=== PATIENT | female | born 1965 | race Caucasian/White ===

== ENCOUNTER 2017-02-27 05:49 | Day surgery (SDC) | payer OTHER ==
[2017-02-27] MEDS ORDERED: VERSED 5 MG/5 ML IV ONE (05:50)
[2017-02-27] MEDS ORDERED: SUBLIMAZE 100 MCG/2 ML IV ONE (05:50)
[2017-02-27] MEDS ORDERED: Sodium Chloride 0.9% 1000 ML 1,000 ML ONE (05:58)
[2017-02-27] MEDS ORDERED: Sodium Chloride 0.9% 1000 ML 1,000 ML IV SCH (06:00)
[2017-02-27 07:57] VITALS: O2SAT 95
[2017-02-27 08:36] VITALS: BP 121/68; PULSE 78
--- NOTE | 2017-02-27 09:14 | OP ---
SURGERY DATE/TIME: 02/27/2017 0701 PREOPERATIVE DIAGNOSES: 1) Screening colonoscopy. 2) Family history of colon cancer. POSTOPERATIVE DIAGNOSIS: Cecal polyps x2. PROCEDURE: Colonoscopy. SURGEON: Lorenzo Strickland M.D. ANESTHESIA: IV sedation. ESTIMATED BLOOD LOSS: Minimal. SPECIMENS: Two hot forceps polypectomies from the cecal area. DESCRIPTION OF PROCEDURE: After informed written consent was obtained, the patient was taken to the endoscopy suite. She underwent continuous pulse oximetry and intermittent blood pressure monitoring used throughout the entirety of the procedure. After adequate level of anesthesia was assessed, a digital rectal exam was performed and showed normal sphincter tone and no internal lesions. The scope was inserted into the rectum and sequentially the entire colonic mucosa was traversed. The level of cecum was reached and verified with direct visualization of ileocecal valve. There were two pericecal sessile polyps removed with hot forceps in their entirety with good hemostasis and complete removal of the lesion in both areas. Those were both collected and sent for pathology testing. Upon withdrawal no other lesions were encountered. Prior to withdrawal retroflexion was performed and this was within normal limits. Prep was noted to be good. The scope was removed and the patient was transferred to the recovery room in excellent condition.
== END 2017-02-27 08:51 | disposition home or self-care (01) ==
LOC: SDC 05:49
PROVIDERS: ATTEND Family Medicine
PROC: 0DBH8ZX Excision of Cecum, Via Natural or Artificial Opening Endoscopic, Diagnostic (ICD-10-PCS; principal; 2017-02-27)
DX: K63.5 Polyp of colon (principal); Z12.11 Encounter for screening for malignant neoplasm of colon; Z80.0 Family history of malignant neoplasm of digestive organs
CPT/HCPCS: 88305; J2250; J3010

== ENCOUNTER 2017-09-16 07:26 | Observation (INO) | payer OTHER ==
[2017-09-16] MEDS ORDERED: Adacel Vial IM ONE ×2 (07:47→07:50)
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
[2017-09-16 08:12] LABS: Granulocyte Absolute (ANC) 7.42 (1.4-6.9); Hemoglobin 12.7 gm/dl (12.0-16.0); Mean Cell Volume 85.7 fl (78-100); Mean Corpuscular Hemoglobin 27.2 pg (26-32); Mean Corpuscular Hgb Concent. 31.8 g/dl (32-36); Mean Platelet Volume 9.9 fl (6-9.5); Platelet Count 305 K/mm3 (150-450); Red Blood Count 4.67 M/mm3 (4.1-5.4); Red Cell Distribution Width 15.7 % (11.5-14.0); White Blood Count 9.6 K/mm3 (4.0-10.5)
[2017-09-16 08:28] LABS: ALKALINE PHOSPHATASE 120 U/L (38-126); AMYLASE 55 U/L (30-110); ANION GAP 14.1 MEQ/L (5-15); BLOOD UREA NITROGEN 16 mg/dL (7-17); CHLORIDE 102 mmol/L (98-107); Calcium 9.3 mg/dL (8.4-10.2); Carbon Dioxide 27 mmol/L (22-30); Creatinine 1 0.56 mg/dL (0.52-1.04); Glucose 183 mg/dL (74-106); LIPASE 118 U/L (23-300); SGOT/AST 224 U/L (14-36); SGPT/ALT 139 U/L (0-35); SODIUM 139 mmol/L (137-145); Total Protein 7.2 g/dL (6.3-8.2)
--- NOTE | 2017-09-16 09:02 | XRAY ---
Indication: Pain following injury. Comparison: None 3 views of the left elbow demonstrates normal bones, articulation, and soft tissues.
[2017-09-16 09:11] LABS: Appearance CLEAR (CLEAR); Bacteria MANY /HPF (NEGATIVE); Bilirubin NEGATIVE (NEGATIVE); Epithelial Cells FEW /HPF (FEW); Glucose NEGATIVE (NEGATIVE); Ketones NEGATIVE (NEGATIVE); Leukocyte Esterase 1+ (NEGATIVE); Nitrite NEGATIVE (NEGATIVE); Protein,Urine Dip TRACE (Negative); RBC 0-2 /HPF (0-2); Urobilinogen NORMAL mg/dL (0-1); WBC 15-25 /HPF (0-5)
[2017-09-16 09:38] LABS: Eosinophil 1 % (0.00-3.0); Lymphocytes 23 % (24-44); Monocyte 1 % (0.0-12.0); Neutrophils 75 % (36.0-66.0); Platelet Estimate NORMAL (NORMAL); Total Cells Counted 100
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
[2017-09-16] MEDS ORDERED: Sodium Chloride 0.9% 1000 ML 1,000 ML IV STA ×2 (11:07→12:41)
[2017-09-16] MEDS ORDERED: Sodium Chloride 0.9% 1000 ML 1,000 ML ONE ×3 (11:17→12:56)
[2017-09-16] MEDS ORDERED: Sodium Chloride 0.9% 1000 ML 1,000 ML IV SCH (15:20)
[2017-09-16] MEDS ORDERED: NovoLOG Insulin SQ PRN (15:20)
[2017-09-16] MEDS ORDERED: Zofran 4 MG/2 ML VIAL IV PRN (15:20)
[2017-09-16] MEDS ORDERED: NON-FORMULARY ITEM (Insulin Lispro 100 UNIT) SQ SCH (17:30)
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
[2017-09-16] MEDS: Glucophage 500 MG PO SCH (17:49)
[2017-09-16] MEDS ORDERED: NovoLOG Insulin SQ ONE (20:11)
[2017-09-16] MEDS: TYLENOL 325 MG PO PRN (21:00)
[2017-09-16] MEDS ORDERED: NON-FORMULARY ITEM (Metformin Hcl [Metformin Hcl] 1,000 MG) PO SCH (22:00)
[2017-09-16] MEDS ORDERED: Cymbalta 30 MG Capsule PO SCH (22:00)
[2017-09-16] MEDS ORDERED: NON-FORMULARY ITEM (Duloxetine Hcl [Cymbalta] 60 MG) PO SCH (22:00)
[2017-09-17] MEDS: TYLENOL 325 MG PO PRN ×2 (04:29→10:11)
[2017-09-17 05:41] LABS: BASOPHIL % 0.5 % (0.0-0.4); Basophil (Absolute #) 0.04 (0-0.4); Eosinophil % 3.2 % (0.00-5.0); Eosinophil (Absolute #) 0.25 (0-0.5); Granulocyte Absolute (ANC) 4.49 (1.4-6.9); Granulocytes % 57.8 % (36.0-66.0); Hematocrit 32.7 % (35-47); Hemoglobin 10.3 gm/dl (12.0-16.0); Lymphocytes % 32.2 % (24.0-44.0); Mean Cell Volume 86.7 fl (78-100); Mean Corpuscular Hemoglobin 27.3 pg (26-32); Mean Corpuscular Hgb Concent. 31.5 g/dl (32-36); Mean Platelet Volume 10.1 fl (6-9.5); Monocyte (Absolute #) 0.49 (0.0-1.3); Monocytes % 6.3 % (0.0-12.0); Platelet Count 286 K/mm3 (150-450); Red Blood Count 3.77 M/mm3 (4.1-5.4); Red Cell Distribution Width 15.7 % (11.5-14.0); White Blood Count 7.8 K/mm3 (4.0-10.5)
[2017-09-17 05:52] LABS: ALBUMIN 3.4 g/dL (3.5-5.0); ALKALINE PHOSPHATASE 88 U/L (38-126); ANION GAP 11.4 MEQ/L (5-15); BLOOD UREA NITROGEN 17 mg/dL (7-17); CHLORIDE 101 mmol/L (98-107); Calcium 8.9 mg/dL (8.4-10.2); Carbon Dioxide 28 mmol/L (22-30); Creatinine 1 0.64 mg/dL (0.52-1.04); Glucose 157 mg/dL (74-106); Potassium 3.7 mmol/L (3.5-5.1); SGOT/AST 69 U/L (14-36); SGPT/ALT 89 U/L (0-35); SODIUM 136 mmol/L (137-145); Total Protein 6.2 g/dL (6.3-8.2)
[2017-09-17 07:05] VITALS: PULSE 82
[2017-09-17] MEDS: NovoLOG Insulin SQ SCH ×2 (07:51→11:58)
[2017-09-17] MEDS: Glucophage 500 MG PO SCH (08:38)
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
[2017-09-17 11:37] VITALS: BP 132/66; O2SAT 96
== END 2017-09-17 12:30 | disposition home or self-care (01) ==
LOC: ED 07:26 → MED SURG 15:11
PROVIDERS: ADMIT Family Medicine; ATTEND Family Medicine
DX: R79.89 Other specified abnormal findings of blood chemistry (principal); R10.11 Right upper quadrant pain; R10.30 Lower abdominal pain, unspecified; S32.009A Unspecified fracture of unspecified lumbar vertebra, initial encounter for closed fracture; R42 Dizziness and giddiness; I10 Essential (primary) hypertension; E11.9 Type 2 diabetes mellitus without complications; Z79.4 Long term (current) use of insulin; E03.9 Hypothyroidism, unspecified; Z79.899 Other long term (current) drug therapy; V59.88XA Occupant (driver) (passenger) of pick-up truck or van injured in other specified transport accidents, initial encounter; Y92.488 Other paved roadways as the place of occurrence of the external cause
CPT/HCPCS: 36000; 36415; 73080; 74177; 80053; 81000; 82150; 82962; 83690; 84484; 85025; 87077; 87086; 87186; 93005; 96360; 96361; 99285; G0378; 90471; 90715; L0625; A9270-GY

== ENCOUNTER 2019-06-18 21:58 | Emergency (ER) | payer OTHER ==
[2019-06-18] MEDS ORDERED: BACIGUENT PACKET ONE (22:40)
--- NOTE | 2019-06-18 22:44 | ERPHSYRPT ---
- History of Present Illness Time Seen by Provider: 06/18/19 22:15 Patient Subjective Stated Complaint: Patient was practicing a line dance and was practicing with white quarter inch PVC pipe and she didnt catch it when she through it in the air in which when it came down hit her above left eye Triage Nursing Assessment: Patient arrived to ER with . Patient A/O times 4. Patient answers questions appropriatley. Patient ambulated back to room with steady gait. Patient with about 2.5CM laceration above left eye. Wound with small amounts of active bleeding. No S/S of infection noted. Patient denies any visual disturbance in left eye. Patient denies dizziness and ELLIOTT. Left and right pupil reactive to light. No abnormalities noted upon assessment. Physician History: Patient was participating in a practice for a light show with PVC pipe with attached lights in 1 fell and hit her in the left eyebrow causing a semicircular laceration approximately 1-1/2 cm in length somewhat stellate no other injury no change in her vision. Timing/Duration: today Quality: painful Severity: mild Location: face (Left eyebrow superficial stellate laceration 1.5 cm in length) Allergies/Adverse Reactions: enalaprilat [From Vasotec] Adverse Reaction (Verified 06/18/19 22:11) Cough Sulfa (Sulfonamide Antibiotics) Adverse Reaction (Verified 06/18/19 22:11) Rash sulfamethoxazole [From Bactrim] Adverse Reaction (Verified 06/18/19 22:11) Rash trimethoprim [From Bactrim] Adverse Reaction (Verified 06/18/19 22:11) Rash Home Medications: Amlodipine Besylate 5 mg [Norvasc 5 mg] 5 mg PO DAILY 02/25/17 [History] Ascorbic Acid [Vitamin C] 500 mg PO DAILY 02/25/17 [History] Duloxetine HCl [Cymbalta] 60 mg PO HS 02/25/17 [History] Furosemide 20 mg [Lasix 20 mg] 20 mg PO DAILY 02/25/17 [History] Gabapentin 100 mg PO TID 02/25/17 [History] Hydrochlorothiazide 12.5 mg PO DAILY 02/25/17 [History] Insulin Lispro [Humalog] 100 unit SQ UD 02/25/17 [History] Losartan Potassium 100 mg PO DAILY 02/25/17 [History] Metformin HCl 1,000 mg PO BID 02/25/17 [History] Aspirin 81 gm Chew [Baby Aspirin 81 mg Chew] 81 mg PO DAILY 06/18/19 [ History] Ferrous Sulfate 325 mg [Feosol 325 mg] 325 mg PO DAILY 06/18/19 [History] Insulin Glargine,Hum.rec.anlog [Lantus] 100 unit SQ HS 06/18/19 [History] Hx Tetanus, Diphtheria Vaccination/Date Given: No Hx Influenza Vaccination/Date Given: Yes Hx Pneumococcal Vaccination/Date Given: No Immunizations Up to Date: Yes - Review of Systems Constitutional: No Fever, No Chills Eyes: No Symptoms Ears, Nose, & Throat: No Symptoms Respiratory: No Cough, No Dyspnea Cardiac: No Chest Pain, No Edema, No Syncope Abdominal/Gastrointestinal: No Abdominal Pain, No Nausea, No Vomiting, No Diarrhea Genitourinary Symptoms: No Dysuria Musculoskeletal: No Back Pain, No Neck Pain Skin: Other (Coleman left eyebrow 1.5 cm in length stellate and superficial), No Rash Neurological: No Dizziness, No Focal Weakness, No Sensory Changes Psychological: No Symptoms Endocrine: No Symptoms All Other Systems: Reviewed and Negative - Past Medical History Pertinent Past Medical History: Yes Neurological History: No Pertinent History, Peripheral Neuropathy ENT History: No Pertinent History Cardiac History: No Pertinent History Respiratory History: No Pertinent History Endocrine Medical History: Diabetes Type II, Hypothyroidism Musculoskeletal History: No Pertinent History GI Medical History: No Pertinent History History: No Pertinent History Psycho-Social History: No Pertinent History Female Reproductive Disorders: No Pertinent History - Past Surgical History Past Surgical History: Yes Neuro Surgical History: No Pertinent History Cardiac: No Pertinent History Respiratory: No Pertinent History Gastrointestinal: No Pertinent History Genitourinary: No Pertinent History Musculoskeletal: No Pertinent History Female Surgical History: Section, Tubal Ligation Other Surgical History: x two - Social History Smoking Status: Former smoker Exposure to second hand smoke: No Drug Use: none Patient Lives Alone: No - Female History Hx Last Menstrual Period: POST Hx Now: No - Nursing Vital Signs Nursing Vital Signs: Initial Vital Signs Temperature 98.4 F 06/18/19 22:03 Pulse Rate 89 06/18/19 22:03 Respiratory Rate 18 06/18/19 22:03 Blood Pressure 148/94 06/18/19 22:03 O2 Sat by Pulse Oximetry 99 06/18/19 22:03 Pain Scale Pain Intensity 5 - Physical Exam General Appearance: no apparent distress, alert Eye Exam: PERRL/EOMI, eyes nml inspection, other (Per official stellate laceration 1.5 cm in length left eyebrow) Ears, Nose, Throat Exam: normal ENT inspection, pharynx normal, moist mucous membranes Neck Exam: normal inspection, non-tender, supple, full range of motion Respiratory Exam: normal breath sounds, lungs clear, No respiratory distress Cardiovascular Exam: regular rate/rhythm, normal heart sounds Gastrointestinal/Abdomen Exam: soft, mass, No tenderness Back Exam: normal inspection, normal range of motion, No CVA tenderness, No vertebral tenderness Extremity Exam: normal inspection, normal range of motion Neurologic Exam: alert, oriented x 3, cooperative, normal mood/affect, sensation nml, No motor deficits Skin Exam: normal color, warm, dry SpO2: 99 Procedures - Laceration/Wound Repair Left Other Wound Location: Left, forehead (Eyebrow) Wound Length (cm): 1.5 Wound's Depth, Shape: superficial, stellate Wound Explored: no foreign body noted Irrigated: Yes Hibiclens Prep: Yes Anesthesia: 1% Lidocaine Volume Anesthetic (ccs): 2 Wound Debrided: minimal Wound Repaired With: sutures Suture Size/Type: 6-0, ethilon Number of Sutures: 6 Layer Closure?: No Sterile Dressing Applied?: No Splint Applied?: No Sling Applied?: No - Course Nursing assessment & vital signs reviewed: Yes - Progress Progress: improved - Departure Departure Disposition: Home Clinical Impression: Laceration of eyebrow, left Condition: Stable Critical Care Time: No Instructions: Wound Care (DC), Laceration Repair With Stitches (DC)
[2019-06-18 23:00] VITALS: BP 133/73; PULSE 84; O2SAT 96
[2019-06-18] MEDS: BACIGUENT PACKET TP ONE (23:00)
[2019-06-18] MEDS: XYLOCAINE 1% HCL 20 ML MDV IJ ONE (23:01)
== END 2019-06-18 23:05 | disposition home or self-care (01) ==
LOC: ED 21:58
DX: S01.112A Laceration without foreign body of left eyelid and periocular area, initial encounter (principal); W22.8XXA Striking against or struck by other objects, initial encounter
CPT/HCPCS: 12011; 96372; 99284; A9270-GY

== ENCOUNTER 2020-09-22 07:30 | Day surgery (SDC) | payer OTHER ==
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
[~2020-09-22 07:30] MED LIST: Lactated Ringers 1,000 ML IV ONE; Sensorcaine 0.25% 10 ML ONE
[2020-09-22] MEDS ORDERED: CEFAZOLIN 2 GM-D5W BAG** 2 GM/50 ML ML IV ONE (08:06)
[2020-09-22] MEDS ORDERED: Lactated Ringers 1,000 ML IV ONE (08:06)
[2020-09-22] MEDS ORDERED: CEFAZOLIN 2 GM-D5W BAG** 2 GM/50 ML ML IV SCH (08:30)
[2020-09-22] MEDS ORDERED: Lactated Ringers 1,000 ML IV SCH (08:30)
[2020-09-22] MEDS ORDERED: SUBLIMAZE 100 MCG/2 ML ONE ×2 (11:46→12:08)
[2020-09-22] MEDS ORDERED: DIPRIVAN 200 MG/20 ML IV ONE (11:46)
[2020-09-22] MEDS ORDERED: Versed 2 MG/2 ML Injection ONE (11:47)
[2020-09-22] MEDS ORDERED: Zofran 4 MG/2 ML VIAL ONE (12:23)
[2020-09-22] MEDS ORDERED: TORAdol 30 mg Injection ONE (12:23)
--- NOTE | 2020-09-22 12:29 | XRAY ---
Indication: Needle wire localization for suspicious 12:00 left breast mass with microcalcifications. Ultrasound breast biopsy results not concordant with mammographic/sonographic findings. Informed consent obtained. Left breast was compressed in the CC plane using a alphanumeric grid paddle. Skin was cleansed with Betadine swabs. A 20-gauge Ghiatas needle was then percutaneously. Orthogonal left mammogram was obtained confirming overall good needle tip placement. Ultimately a hooked hilda wire was then inserted into the needle with the outer needle removed. Repeat orthogonal digital mammograms obtained confirms overall good needle placement. Wire were secured and overlying bandage material applied. Patient was then taken to surgery. Impression: Technically successful needle wire localization 12:00 breast mass with microcalcifications. No immediate complications.
--- NOTE | 2020-09-22 12:31 | XRAY ---
Indication: Surgical specimen following needle wire localization. A single specimen radiograph demonstrates the abnormal breast tissue with microcalcifications, 2 mammotome clips, and intact hilda wire. Findings were reported to the surgeon.
[2020-09-22] MEDS ORDERED: NORCO 5/325 MG PO PRN (14:10)
--- NOTE | 2020-09-22 14:26 | OP ---
SURGERY DATE/TIME: 09/22/2020 1148 PREOPERATIVE DIAGNOSES: 1) Left breast lesion per mammography requiring biopsy. 2) Right breast palpable lesion requiring biopsy. POSTOPERATIVE DIAGNOSES: 1) Left breast lesion per mammography biopsy. 2) Right breast biopsy palpable lesion. PROCEDURES: 1) Left prior needle placement breast biopsy. 2) Right open palpable right breast biopsy. SURGEON: Kel Montalvo M.D. PLATE MOLDER: Dr. Hussein Soria ANESTHESIA: General. COMPLICATIONS: None. CONDITION: Stable. INDICATION: The patient has two lesions, one mammographically and one clinically. She is marked preoperatively. DESCRIPTION OF PROCEDURE: She is taken to surgery. General anesthetic. Routine prep and drape. Time out performed. On the left side the wire path was followed, encompassed specimen mammography confirmed the lesion. Hemostasis satisfactory. Closed with 2-0 Vicryl, 4-0 Vicryl and Steri-Strips. On the right side, the lesion was palpable. It was kind of oblong. It was totally removed. Hemostasis obtained with electrocautery, closed with 3-0 Vicryl, 4-0 Vicryl and Steri-Strips. The patient tolerated the procedure satisfactorily.
[2020-09-22 15:26] VITALS: O2SAT 97
[2020-09-22 15:40] VITALS: BP 138/80; PULSE 82
== END 2020-09-22 15:20 | disposition home or self-care (01) ==
LOC: SDC 07:30
PROVIDERS: ATTEND Surgery
DX: N60.32 Fibrosclerosis of left breast (principal); N60.31 Fibrosclerosis of right breast; N62 Hypertrophy of breast; N64.9 Disorder of breast, unspecified; N64.1 Fat necrosis of breast; S20.01XS Contusion of right breast, sequela; E11.9 Type 2 diabetes mellitus without complications; I10 Essential (primary) hypertension; E78.5 Hyperlipidemia, unspecified; G62.9 Polyneuropathy, unspecified; Z79.899 Other long term (current) drug therapy
CPT/HCPCS: 19281; 76098; 88305; J0690; J1885; J2250; J2405; J2704; J3010; A9270-GY

== ENCOUNTER 2020-12-07 17:38 | Emergency (ER) | payer OTHER ==
--- NOTE | 2020-12-07 17:45 | ERPHSYRPT ---
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 Patient is a patient of Dr. Strickland. She denies chest pain. She does not have significant shortness of breath. Patient has received a COVID-19 vaccination (Ajubeo). Patient has a history of diabetes and peripheral neuropathy. She also has a history of hypertension and hypothyroidism. Patient systolic blood pressure prior to a viral into the emergency department was 170. Patient denies head injury. Patient denies headache. She also denies abdominal pain. (JOE PORTER) Allergies/Adverse Reactions: enalaprilat [From Vasotec] Adverse Reaction (Verified 12/07/20 17:59) Cough Sulfa (Sulfonamide Antibiotics) Adverse Reaction (Verified 12/07/20 17:59) Rash sulfamethoxazole [From Bactrim] Adverse Reaction (Verified 12/07/20 17:59) Rash trimethoprim [From Bactrim] Adverse Reaction (Verified 12/07/20 17:59) Rash Home Medications: Amlodipine Besylate 5 mg [Norvasc 5 mg] 5 mg PO DAILY 02/25/17 [History] Ascorbic Acid [Vitamin C] 500 mg PO DAILY 02/25/17 [History] Duloxetine HCl [Cymbalta] 60 mg PO HS 02/25/17 [History] Furosemide 20 mg [Lasix 20 mg] 20 mg PO DAILY 02/25/17 [History] Gabapentin 100 mg PO TID 02/25/17 [History] Hydrochlorothiazide 12.5 mg PO DAILY 02/25/17 [History] Insulin Lispro [Humalog] 1 unit SQ UD 02/25/17 [History] Losartan Potassium 100 mg PO DAILY 02/25/17 [History] Metformin HCl 1,000 mg PO BID 02/25/17 [History] Insulin Glargine,Hum.rec.anlog [Lantus] 100 unit SQ HS 06/18/19 [History] Atorvastatin Calcium [Lipitor] 20 mg PO QHS 09/02/20 [History] Levothyroxine Sodium [Levothyroxine] 125 mcg PO DAILY 09/02/20 [History] Omeprazole 20 mg PO DAILY 09/02/20 [History] Sennosides/Docusate Sodium [Senna Plus 8.6-50 mg Softgel] 1 each PO DAILY 09/02/20 [History] Travel Risk - International Travel Have you traveled outside of the country in past 3 weeks: No - Coronavirus Screening Are you exhibiting any of the following symptoms?: Yes Symptoms: Vomiting/Diarrhea Close contact with a COVID-19 positive Pt in past 14-21 Days: No - Vaccine Status Have you recieved a Covid-19 vaccination: Yes Case Management Associate: Ajubeo - Review of Systems Constitutional: Weakness Eyes: No Symptoms Ears, Nose, & Throat: No Symptoms Respiratory: No Symptoms Cardiac: No Symptoms Abdominal/Gastrointestinal: Nausea, Vomiting, No Abdominal Pain, No Diarrhea Genitourinary Symptoms: No Symptoms Musculoskeletal: No Symptoms Skin: No Symptoms Neurological: Dizziness Psychological: No Symptoms Endocrine: No Symptoms Hematologic/Lymphatic: No Symptoms Immunological/Allergic: No Symptoms All Other Systems: Reviewed and Negative - Past Medical History Pertinent Past Medical History: Yes Neurological History: No Pertinent History, Peripheral Neuropathy ENT History: No Pertinent History Cardiac History: High Cholesterol, Hypertension Respiratory History: No Pertinent History Endocrine Medical History: Diabetes Type II, Hypothyroidism Musculoskeletal History: No Pertinent History GI Medical History: No Pertinent History History: No Pertinent History Psycho-Social History: No Pertinent History Female Reproductive Disorders: No Pertinent History Other Medical History: Anemia - Past Surgical History Past Surgical History: Yes Neuro Surgical History: No Pertinent History Cardiac: No Pertinent History Respiratory: No Pertinent History Gastrointestinal: No Pertinent History Genitourinary: No Pertinent History Musculoskeletal: No Pertinent History Female Surgical History: Section, Tubal Ligation Other Surgical History: x two. Colonoscopies. - Social History Smoking Status: Former smoker Exposure to second hand smoke: No Drug Use: none Patient Lives Alone: No - Physical Exam General Appearance: mild distress, alert, anxiety, obese Eye Exam: PERRL/EOMI, eyes nml inspection Ears, Nose, Throat Exam: normal ENT inspection, moist mucous membranes Neck Exam: normal inspection, non-tender, supple, full range of motion Respiratory Exam: normal breath sounds, lungs clear, airway intact, No chest tenderness, No respiratory distress Cardiovascular Exam: regular rate/rhythm, normal heart sounds, normal peripheral pulses Gastrointestinal/Abdomen Exam: soft, normal bowel sounds, No tenderness Pelvic Exam: not done Rectal Exam: not done Back Exam: normal inspection, normal range of motion, No CVA tenderness Extremity Exam: normal inspection, normal range of motion, pelvis stable Neurologic Exam: alert, oriented x 3, cooperative, director of strategic marketing II-XII nml as tested, other (The patient looks like she does not feel well. I did not attempt to check her gait or cerebellar function at this time. Once she is feeling better we will recheck her neurologic status. There are no focal signs or symptoms.) Skin Exam: normal color, warm, dry Lymphatic Exam: No adenopathy SpO2 Interpretation: normal O2 Delivery: Room Air - Nursing Vital Signs Nursing Vital Signs: Initial Vital Signs Temperature 96.6 F 12/07/20 17:43 Pulse Rate 80 12/07/20 17:43 Respiratory Rate 18 12/07/20 17:43 Blood Pressure 170/93 12/07/20 17:43 O2 Sat by Pulse Oximetry 97 12/07/20 17:43 Pain Scale Pain Intensity 0 - Course Nursing assessment & vital signs reviewed: Yes Ordered Tests: Active Orders 24 hr Category Date Time Status Battery Container Tester STAT Care 12/07/20 18:04 Active EKG-ER Only STAT Care 12/07/20 18:03 Active IV Insertion STAT Care 12/07/20 18:03 Active Isolation, Initiate & Maintain STAT Care 12/07/20 18:04 Active Pulse Oximetry (ED) STAT Care 12/07/20 18:03 Active HEAD WITHOUT CONTRAST [CT] Stat Exams 12/07/20 18:04 Taken BLOOD CULTURE Stat Lab 12/07/20 18:18 Received CBC W DIFF Stat Lab 12/07/20 18:10 Completed CMP Stat Lab 12/07/20 18:10 Completed Ferritin Stat Lab 12/07/20 18:10 Completed LDH-LACTATE DEHYDROGENASE Stat Lab 12/07/20 18:10 Completed Lactic Acid Stat Lab 12/07/20 18:05 Completed MAGNESIUM Stat Lab 12/07/20 18:10 Completed [place] Screen Stat Lab 12/07/20 18:10 Completed T4 (Thyroxine) Stat Lab 12/07/20 Completed TROPONIN Q3H Lab 12/07/20 18:10 Completed TROPONIN Q3H Lab 12/07/20 21:15 Ordered TROPONIN Q3H Lab 12/08/20 00:15 Ordered TROPONIN Q3H Lab 12/08/20 03:15 Ordered TROPONIN Q3H Lab 12/08/20 06:15 Ordered TSH [TSH, 3RD Generation] Stat Lab 12/07/20 18:31 Completed UA W/RFX UR CULTURE Stat Lab 12/07/20 20:12 Completed Medication Summary Discontinued Medications Generic Name Dose Route Start Last Admin Trade Name Freq PRN Reason Stop Dose Admin Sodium Chloride 1,000 mls @ 999 mls/hr 12/07/20 18:03 12/07/20 19:25 Sodium Chloride 0.9% 1000 Ml IV 12/07/20 19:03 Infused .Q1H1M STA Infusion Sodium Chloride Confirm 12/07/20 18:08 Sodium Chloride 0.9% 1000 Ml Administered 12/07/20 18:09 Dose 1,000 mls @ ud .ROUTE .STK-MED ONE Ondansetron HCl 4 mg 12/07/20 18:03 12/07/20 18:09 Zofran 4 Mg/2 Ml Vial IV 12/07/20 18:04 4 mg STAT STA Administration Ondansetron HCl Confirm 12/07/20 18:08 Zofran 4 Mg/2 Ml Vial Administered 12/07/20 18:09 Dose 4 mg .ROUTE .STK-MED ONE Lab/Rad Data: Laboratory Result Diagrams 12/07/20 18:10 12/07/20 18:10 Laboratory Results 12/07/20 12/07/20 12/07/20 Range/Units Unknown 20:12 18:31 WBC (4.0-10.5) K/mm3 RBC (4.1-5.4) M/mm3 Hgb (12.0-16.0) gm/dl Hct (35-47) % MCV (78-100) fl MCH (26-32) pg MCHC (32-36) g/dl RDW (11.5-14.0) % Plt Count (150-450) K/mm3 MPV (7.5-11.0) fl Gran % (36.0-66.0) % Eos # (Auto) (0-0.5) Absolute Lymphs (auto) (1.0-4.6) Absolute Monos (auto) (0.0-1.3) Lymphocytes % (24.0-44.0) % Monocytes % (0.0-12.0) % Eosinophils % (0.00-5.0) % Basophils % (0.0-0.4) % Absolute Granulocytes (1.4-6.9) Basophils # (0-0.4) Sodium (137-145) mmol/L Potassium (3.5-5.1) mmol/L Chloride (98-107) mmol/L Carbon Dioxide (22-30) mmol/L Anion Gap (5-15) MEQ/L BUN (7-17) mg/dL Creatinine (0.52-1.04) mg/dL Estimated GFR ML/MIN Glucose (74-106) mg/dL Lactic Acid (0.4-2.0) Calcium (8.4-10.2) mg/dL Magnesium (1.6-2.3) mg/dL Ferritin (11.1-264) ng/mL Total Bilirubin (0.2-1.3) mg/dL AST (14-36) U/L ALT (0-35) U/L Alkaline Phosphatase (38-126) U/L Lactate Dehydrogenase (120-246) U/L Troponin I (0.000-0.034) ng/mL Serum Total Protein (6.3-8.2) g/dL Albumin (3.5-5.0) g/dL Thyroxine (T4) 16.7 H (5.53-10.96) ug/dL TSH 3rd Generation 2.250 (0.47-4.68) mIU/L Urine Color YELLOW (YELLOW) Urine Appearance CLEAR (CLEAR) Urine pH 6.0 (5-6) Ur Specific [place] 1.013 (1.005-1.025) Urine Protein 30 (Negative) Urine Ketones NEGATIVE (NEGATIVE) Urine Blood NEGATIVE (0-5) Addison/ul Urine Nitrite NEGATIVE (NEGATIVE) Urine Bilirubin NEGATIVE (NEGATIVE) Urine Urobilinogen NEGATIVE (0-1) mg/dL Ur Leukocyte Esterase NEGATIVE (NEGATIVE) Urine WBC (Auto) NONE (0-5) /HPF Urine RBC (Auto) NONE (0-2) /HPF U Epithel Cells (Auto) RARE (FEW) /HPF Urine Bacteria (Auto) NONE (NEGATIVE) /HPF Urine Mucus (Auto) SLIGHT (NEGATIVE) /HPF Urine Culture Reflexed NO (NO) Urine Glucose 50 (NEGATIVE) mg/dL Monoscreen (Negative) 12/07/20 12/07/20 12/07/20 Range/Units 18:10 18:10 18:10 WBC (4.0-10.5) K/mm3 RBC (4.1-5.4) M/mm3 Hgb (12.0-16.0) gm/dl Hct (35-47) % MCV (78-100) fl MCH (26-32) pg MCHC (32-36) g/dl RDW (11.5-14.0) % Plt Count (150-450) K/mm3 MPV (7.5-11.0) fl Gran % (36.0-66.0) % Eos # (Auto) (0-0.5) Absolute Lymphs (auto) (1.0-4.6) Absolute Monos (auto) (0.0-1.3) Lymphocytes % (24.0-44.0) % Monocytes % (0.0-12.0) % Eosinophils % (0.00-5.0) % Basophils % (0.0-0.4) % Absolute Granulocytes (1.4-6.9) Basophils # (0-0.4) Sodium (137-145) mmol/L Potassium (3.5-5.1) mmol/L Chloride (98-107) mmol/L Carbon Dioxide (22-30) mmol/L Anion Gap (5-15) MEQ/L BUN (7-17) mg/dL Creatinine (0.52-1.04) mg/dL Estimated GFR ML/MIN Glucose (74-106) mg/dL Lactic Acid (0.4-2.0) Calcium (8.4-10.2) mg/dL Magnesium (1.6-2.3) mg/dL Ferritin 17.1 (11.1-264) ng/mL Total Bilirubin (0.2-1.3) mg/dL AST (14-36) U/L ALT (0-35) U/L Alkaline Phosphatase (38-126) U/L Lactate Dehydrogenase (120-246) U/L Troponin I < 0.012 (0.000-0.034) ng/mL Serum Total Protein (6.3-8.2) g/dL Albumin (3.5-5.0) g/dL Thyroxine (T4) (5.53-10.96) ug/dL TSH 3rd Generation (0.47-4.68) mIU/L Urine Color (YELLOW) Urine Appearance (CLEAR) Urine pH (5-6) Ur Specific [place] (1.005-1.025) Urine Protein (Negative) Urine Ketones (NEGATIVE) Urine Blood (0-5) Addison/ul Urine Nitrite (NEGATIVE) Urine Bilirubin (NEGATIVE) Urine Urobilinogen (0-1) mg/dL Ur Leukocyte Esterase (NEGATIVE) Urine WBC (Auto) (0-5) /HPF Urine RBC (Auto) (0-2) /HPF U Epithel Cells (Auto) (FEW) /HPF Urine Bacteria (Auto) (NEGATIVE) /HPF Urine Mucus (Auto) (NEGATIVE) /HPF Urine Culture Reflexed (NO) Urine Glucose (NEGATIVE) mg/dL Monoscreen NEGATIVE (Negative) 12/07/20 12/07/20 12/07/20 Range/Units 18:10 18:10 18:05 WBC 11.5 H (4.0-10.5) K/mm3 RBC 4.63 (4.1-5.4) M/mm3 Hgb 11.4 L (12.0-16.0) gm/dl Hct 38.6 (35-47) % MCV 83.4 (78-100) fl MCH 24.6 L (26-32) pg MCHC 29.5 L (32-36) g/dl RDW 17.0 H (11.5-14.0) % Plt Count 344 (150-450) K/mm3 MPV 10.6 (7.5-11.0) fl Gran % 59.1 (36.0-66.0) % Eos # (Auto) 0.34 (0-0.5) Absolute Lymphs (auto) 3.61 (1.0-4.6) Absolute Monos (auto) 0.71 (0.0-1.3) Lymphocytes % 31.3 (24.0-44.0) % Monocytes % 6.2 (0.0-12.0) % Eosinophils % 3.0 (0.00-5.0) % Basophils % 0.4 (0.0-0.4) % Absolute Granulocytes 6.81 (1.4-6.9) Basophils # 0.05 (0-0.4) Sodium 133 L (137-145) mmol/L Potassium 3.9 (3.5-5.1) mmol/L Chloride 97 L (98-107) mmol/L Carbon Dioxide 24 (22-30) mmol/L Anion Gap 16.5 H (5-15) MEQ/L BUN 17 (7-17) mg/dL Creatinine 0.61 (0.52-1.04) mg/dL Estimated GFR > 60.0 ML/MIN Glucose 203 H (74-106) mg/dL Lactic Acid 1.8 (0.4-2.0) Calcium 9.5 (8.4-10.2) mg/dL Magnesium 2.1 (1.6-2.3) mg/dL Ferritin (11.1-264) ng/mL Total Bilirubin 0.30 (0.2-1.3) mg/dL AST 75 H (14-36) U/L ALT 53 H (0-35) U/L Alkaline Phosphatase 107 (38-126) U/L Lactate Dehydrogenase 198 (120-246) U/L Troponin I (0.000-0.034) ng/mL Serum Total Protein 7.8 (6.3-8.2) g/dL Albumin 4.5 (3.5-5.0) g/dL Thyroxine (T4) (5.53-10.96) ug/dL TSH 3rd Generation (0.47-4.68) mIU/L Urine Color (YELLOW) Urine Appearance (CLEAR) Urine pH (5-6) Ur Specific [place] (1.005-1.025) Urine Protein (Negative) Urine Ketones (NEGATIVE) Urine Blood (0-5) Addison/ul Urine Nitrite (NEGATIVE) Urine Bilirubin (NEGATIVE) Urine Urobilinogen (0-1) mg/dL Ur Leukocyte Esterase (NEGATIVE) Urine WBC (Auto) (0-5) /HPF Urine RBC (Auto) (0-2) /HPF U Epithel Cells (Auto) (FEW) /HPF Urine Bacteria (Auto) (NEGATIVE) /HPF Urine Mucus (Auto) (NEGATIVE) /HPF Urine Culture Reflexed (NO) Urine Glucose (NEGATIVE) mg/dL Monoscreen (Negative) - Progress Progress: improved, re-examined Counseled pt/family regarding: lab results, diagnosis, need for follow-up, rad results - Progress Progress Note: 12/07/20 18:57 I am signing out to Dr. Gray at shift change. He will follow up on x-ray results as well as lab results and make final disposition. (JOE PORTER) 12/07/20 20:35 55 years old is checked out to me at shift change from Dr. Porter with pending work-up. Patient presented with sudden onset dizziness/vertigo symptoms with vomiting and nonfocal neuro exam. She is given symptomatic treatment in the ER, on reevaluation patient is back to her baseline, ambulating in the ER, neuro exam negative. CT head is negative. Has minimal elevated white count and mild dehydration. I agree with Dr. Porter after discussion with him in detail that patient does not need neuro work-up/neuro consult and seems more of a peripheral vertigo. We will give her meclizine to take as needed. Do not know the exact cause of her symptoms. Patient is being discharge with outpatient follow-up. Discussed signs symptoms of worsening needing return to ER which he seems understanding. (ENRICO GRAY) - Departure Departure Disposition: Home Critical Care Time: No - Departure Clinical Impression: Dizziness Vomiting Qualifiers: Vomiting type: unspecified Vomiting Intractability: non-intractable Nausea presence: with nausea Qualified Code(s): R11.2 - Nausea with vomiting, unspecified Condition: Stable Referrals: GERONIMO STRICKLAND MD [Primary Care Provider] - (Call tomorrow for appointment) Instructions: Vertigo (a Type of Dizziness) (DC) Additional Instructions: Take meclizine only as needed. Follow-up with primary care for reevaluation. Return to ER for worsening dizziness/lightheadedness or if develop numbness tingling weakness, visual disturbance etc. Prescriptions: Meclizine HCl 25 mg [Antivert 25 mg] 25 mg PO TID PRN 5 Days #7 tablet
[2020-12-07] MEDS ORDERED: Zofran 4 MG/2 ML VIAL IV STA (18:03)
[2020-12-07] MEDS ORDERED: Sodium Chloride 0.9% 1000 ML 1,000 ML IV STA (18:03)
[2020-12-07] MEDS ORDERED: Zofran 4 MG/2 ML VIAL ONE (18:08)
[2020-12-07] MEDS ORDERED: Sodium Chloride 0.9% 1000 ML 1,000 ML ONE (18:08)
[2020-12-07 18:26] LABS: Absolute Neutrophil Ct (ANC) 6.81 (1.4-6.9); BASOPHIL % 0.4 % (0.0-0.4); Basophil (Absolute #) 0.05 (0-0.4); Eosinophil (Absolute #) 0.34 (0-0.5); Hematocrit 38.6 % (35-47); Hemoglobin 11.4 gm/dl (12.0-16.0); Lymphocyte (Absolute #) 3.61 (1.0-4.6); Lymphocytes % 31.3 % (24.0-44.0); Mean Cell Volume 83.4 fl (78-100); Mean Corpuscular Hemoglobin 24.6 pg (26-32); Mean Corpuscular Hgb Concent. 29.5 g/dl (32-36); Mean Platelet Volume 10.6 fl (7.5-11.0); Monocyte (Absolute #) 0.71 (0.0-1.3); Monocytes % 6.2 % (0.0-12.0); Neutrophil % 59.1 % (36.0-66.0); Platelet Count 344 K/mm3 (150-450); Red Blood Count 4.63 M/mm3 (4.1-5.4); White Blood Count 11.5 K/mm3 (4.0-10.5)
[2020-12-07 18:41] LABS: ALBUMIN 4.5 g/dL (3.5-5.0); ALKALINE PHOSPHATASE 107 U/L (38-126); ANION GAP 16.5 MEQ/L (5-15); BLOOD UREA NITROGEN 17 mg/dL (7-17); CHLORIDE 97 mmol/L (98-107); Calcium 9.5 mg/dL (8.4-10.2); Carbon Dioxide 24 mmol/L (22-30); Creatinine 1 0.61 mg/dL (0.52-1.04); EST GLOMERULAR FILTRATION RATE > 60.0 ML/MIN; Glucose 203 mg/dL (74-106); LDH-LACTATE DEHYDROGENASE 198 U/L (120-246); MAGNESIUM 2.1 mg/dL (1.6-2.3); Potassium 3.9 mmol/L (3.5-5.1); SGOT/AST 75 U/L (14-36); SGPT/ALT 53 U/L (0-35); SODIUM 133 mmol/L (137-145); Total Protein 7.8 g/dL (6.3-8.2)
[2020-12-07 20:15] VITALS: BP 153/85; PULSE 71; O2SAT 99
[2020-12-07 20:25] LABS: Appearance CLEAR (CLEAR); Bilirubin NEGATIVE (NEGATIVE); Blood NEGATIVE Ery/ul (0-5); Epithelial Cells RARE /HPF (FEW); Glucose 50 mg/dL (NEGATIVE); Ketones NEGATIVE (NEGATIVE); Leukocyte Esterase NEGATIVE (NEGATIVE); Mucus SLIGHT /HPF (NEGATIVE); Nitrite NEGATIVE (NEGATIVE); Protein,Urine Dip 30 (Negative); Specific Gravity 1.013 (1.005-1.025); Urobilinogen NEGATIVE mg/dL (0-1)
--- NOTE | 2020-12-08 08:34 | XRAY ---
Indication: Dizziness. Hypertension. Multiple contiguous axial images obtained through the head without contrast. Comparison: None Normal appearing brain parenchyma, ventricles, and bony calvarium for patient's age. Paranasal sinuses and mastoid air cells are clear. Impression: Normal CT head without contrast exam.
== END 2020-12-07 20:55 | disposition home or self-care (01) ==
LOC: ED 17:38
DX: R42 Dizziness and giddiness (principal); R19.7 Diarrhea, unspecified; I10 Essential (primary) hypertension; E03.9 Hypothyroidism, unspecified; E11.9 Type 2 diabetes mellitus without complications; Z79.4 Long term (current) use of insulin; Z51.81 Encounter for therapeutic drug level monitoring; E78.00 Pure hypercholesterolemia, unspecified; G62.9 Polyneuropathy, unspecified; Z79.899 Other long term (current) drug therapy
CPT/HCPCS: 36000; 36415; 70450; 80053; 81001; 82728; 83605; 83615; 83735; 84436; 84443; 84484; 85025; 86308; 87040; 93005; 93041; 94760; 96374; 99284; J2405

== ENCOUNTER 2022-08-01 05:44 | Day surgery (SDC) | payer OTHER ==
[2022-08-01] MEDS ORDERED: Lactated Ringers 1,000 ML IV SCH (06:30)
[2022-08-01] MEDS ORDERED: Versed 2 MG/2 ML Injection ONE (07:32)
[2022-08-01] MEDS ORDERED: DIPRIVAN 200 MG/20 ML IV ONE ×4 (07:32→08:33)
[2022-08-01] MEDS ORDERED: Xylocaine-Mpf 2% 5 Ml Vial ONE (07:32)
[2022-08-01] MEDS ORDERED: Lactated Ringers 1,000 ML IV ONE (08:23)
--- NOTE | 2022-08-01 09:05 | OP ---
SURGERY DATE/TIME: 08/01/2022 0739 PREOPERATIVE DIAGNOSES: 1) Screening colonoscopy. 2) Family history of colon cancer. POSTOPERATIVE DIAGNOSES: 1) Colon polyps x4. 2) Poor bowel prep. PROCEDURE: Colonoscopy. SURGEON: Lorenzo Strickland M.D. ANESTHESIA: MAC by Oli Marks CRNA. ESTIMATED BLOOD LOSS: Minimal. SPECIMENS: There are two hot snare polypectomies and two hot forceps polypectomies. DESCRIPTION OF PROCEDURE: After informed written consent was obtained, the patient was taken to the endoscopy suite. She was placed in left lateral decubitus position and anesthesia was titrated to desired level of consciousness. Digital rectal exam showed normal sphincter tone and no internal lesions. The scope was inserted into the rectum and sequentially the entire colonic mucosa was traversed. On the way in there was a large polyp in the proximal transverse colon near hepatic flexure which was grasped with snare and removed in its entirety this is largest of all the polyps removed. There was another slightly smaller but fairly large sessile polyp in the distal transverse colon which was likewise snared and removed in its entirety. There were two small sessile polyps in the ascending colon which were grasped with forceps, cauterized and removed in entirety. All polyps were retrieved and sent for pathology testing. No other lesions were encountered prior to withdrawal. Retroflexion was performed and showed no internal lesions. The scope was removed and the patient was transferred to the recovery room in good condition. She will follow up in a week for pathology and recommendation on follow up.
[2022-08-01 09:21] VITALS: BP 128/76; PULSE 74; O2SAT 98
== END 2022-08-01 09:35 | disposition home or self-care (01) ==
LOC: SDC 05:44
PROVIDERS: ATTEND Family Medicine
DX: Z12.11 Encounter for screening for malignant neoplasm of colon (principal); Z80.0 Family history of malignant neoplasm of digestive organs; D12.2 Benign neoplasm of ascending colon; D12.5 Benign neoplasm of sigmoid colon; D12.3 Benign neoplasm of transverse colon; E11.9 Type 2 diabetes mellitus without complications
CPT/HCPCS: 82947; J2250; J2704

== ENCOUNTER 2024-03-18 06:21 | Day surgery (SDC) | payer OTHER ==
[2024-03-18] MEDS ORDERED: TRANEXAMIC 1,000 MG/100ML-NACL 1,000 MG/100 ML PIGGYBACK IV ONE (06:48)
[2024-03-18] MEDS ORDERED: TYLENOL EXTRA STRENGTH 500 MG ONE (06:49)
[2024-03-18] MEDS: CEFAZOLIN 2 GM/100 ML NaCl 2 GM/100 ML IVPB IV SCH (06:57)
[2024-03-18] MEDS: Lactated Ringers 1,000 ML IV SCH ×2 (06:57→08:11)
[2024-03-18] MEDS: NEURONTIN PO ONE (06:58)
[2024-03-18] MEDS: celeBREX 100 MG PO ONE (06:58)
[2024-03-18] MEDS: Decadron 4 MG PO ONE (06:58)
[2024-03-18] MEDS: TYLENOL EXTRA STRENGTH 500 MG PO ONE (07:01)
[2024-03-18] MEDS ORDERED: Versed 2 MG/2 ML Injection ONE (08:22)
[2024-03-18] MEDS ORDERED: Propofol 1000 mg/100 ml Bottle 100 ML IV ONE ×2 (08:40→10:08)
[2024-03-18] MEDS ORDERED: Naropin 0.5% 30 ML VIAL ONE (09:12)
[2024-03-18] MEDS ORDERED: Zofran 4 MG/2 ML VIAL ONE (09:27)
[2024-03-18] MEDS ORDERED: Naropin 0.5% 30 ML VIAL*** 123.125 MG, TORAdol 30 mg Injection*** 15 MG, Epinephrine Pr... IV ONE (09:30)
[2024-03-18] MEDS ORDERED: TRANEXAMIC 1,000 MG/100ML-NACL 1,000 MG/100 ML PIGGYBACK IV SCH (09:30)
[2024-03-18] MEDS ORDERED: DIPRIVAN 200 MG/20 ML IV ONE (10:30)
--- NOTE | 2024-03-18 11:47 | XRAY ---
CLINICAL HISTORY: POST OP KNEE REPLACEMENT COMPARISON: No prior studies are available for comparison. TECHNIQUE: X-ray images of the left knee were obtained in 2 views: Anteroposterior (AP) and lateral projections. FINDINGS: Bone Structure: Bone structure is normal and well-aligned. No evidence of acute fractures or dislocations. No osseous lesions or abnormalities were identified. Joint Spaces: Total knee arthroplasty changes seen in anatomic alignment. Patella: Patella is normal in position and alignment. No evidence of patellar dislocation or subluxation. Soft Tissues: Surgical related soft tissue swelling with subcutaneous emphysema. Additional Findings: No signs of degenerative changes, such as osteoarthritis or inflammatory arthropathy. IMPRESSION: 1. Total knee arthroplasty changes seen in anatomic alignment. 2. Surgical related soft tissue swelling with subcutaneous emphysema. Disclaimer: A subtle bone abnormality or fracture may not be readily apparent on X-rays, thus clinical correlation and further imaging including follow-up CT, MRI, or follow-up X-rays are advised as needed. Electronically Signed by: Morenita Wu MD. (03/18/2024 11:43:42 EST)
[2024-03-18 12:21] VITALS: RESP 19; TEMP 97.2; O2SAT 97
[2024-03-18 14:29] VITALS: BP 125/70; PULSE 83
--- NOTE | 2024-03-20 01:42 | OP ---
SURGERY DATE/TIME: 03/18/2024 [id number] PREOPERATIVE DIAGNOSIS: Left knee degenerative joint disease. POSTOPERATIVE DIAGNOSIS: Left knee degenerative joint disease. PROCEDURE: Left total knee replacement. SURGEON: Clark Casarez MD MARINE DIESEL TECHNICIAN: Wilma Hess ANESTHESIA: Spinal plus peripheral block by Mike Mosquera CRNA. IMPLANTS: Howard Persona size 6 left cruciate-retaining femur and a size D 5 degree tibial baseplate with the Persona highly cross-linked polyethylene 10 mm thickness left medial congruent spacer with a size C/D and a Persona 35 mm symmetric patella 9 mm thick. ESTIMATED BLOOD LOSS: 100 mL. FLUIDS: Per the anesthesia record. SPECIMENS: None. DRAINS: None. COMPLICATIONS: None. INDICATIONS: The patient is an 58-year-old white female with painful left knee refractory to conservative care. She wishes to have this replaced for pain relief. FINDINGS: Severe DJD with mainly patellofemoral involvement. DESCRIPTION OF PROCEDURE AND FINDINGS: The patient was seen in the holding room. We identified the left knee as correct. This was initialed by me. She was taken to the OR where she had spinal anesthesia and a nerve block. She had 2 g of Kefzol and 1000 mg of tranexamic acid. She was positioned supine with a bump under her left hip, had sterile prep and draping of her left lower extremity. Time-out was performed by me. The tourniquet was inflated around the upper thigh after gravity exsanguination to 250 mmHg. Total tourniquet time was 46 minutes. A midline incision was made from just medial to the tibial tubercle to about 6 mm above the superior pole of the patella. A medial parapatellar approach was made, splitting the quadriceps tendon 10% and 90%. The patella was everted. The fat pad was excised. Large osteophytes were removed from the lateral side and off the patella. The patella was measured at 22 mm thickness and was 35 mm in diameter. The Howard reamer was used to ream the patella from 22 mm down to 13 mm thickness and was then drilled out with the guide with 3 holes. The ACL was incised. The drill was drilled down the center of the femoral and tibial canals. The femoral guide jovi was placed in 5 degrees of valgus for a left knee with a 10 mm distal cut due to a 10 degree flexion contracture preoperatively. The cut was made and then the tibia was prepared with an intramedullary jovi with a 7-degree posterior slope taking 2 mm off the medial side but going back and taking an additional 2 mm due to tight gap. The femoral guide was applied and matched to the transepicondylar access line as well as posterior referencing with paddles and then an anterior referencing stylus to grapple operator the size. It is size 6. This is marked in 3 degrees of external rotation. The size 6 cutting block was applied and the anterior and posterior cuts as well as the anterior chamfer and posterior chamfer cuts were made. The menisci were excised and the flexion and extension gaps were equal for a 10 mm spacer. The tibial baseplate was in line with the medial third of the tibial tubercle and pinned down with 2 screws. Then, the trial femur was applied. The knee was put in full extension with a 10 mm thickness trial spacer. The patella button tracked well with knee flexing from about 0 to 115 with good stability in flexion and extension to valgus and varus stress. The femoral lug nuts were drilled out and then the tibia was drilled out with a large drill and keel punch. The bony surfaces were irrigated and dried. Femoral canal was plugged with a bone plug. Then, 30 mL of 0.5% ropivacaine was mixed with 30 mL of saline and injected circumferentially around the capsule. Two batches of Howard cement were mixed under vacuum conditions and then placed in the cement gun. This was placed on the bony surfaces and on the components, with the tibial components applied first then the femoral component. The knee was put in full extension with a 10 mm trial spacer. The patella button was held with a clamp. The tourniquet was released. Hemostasis was obtained with electrocautery. When all cement had hardened, excess cement was trimmed off with an osteotome. The knee was thoroughly irrigated and then the true 10 mm medial congruent polyethylene was locked into the tray with range of motion and stability as mentioned before. Additional irrigation was done and then the medial parapatellar approach was closed with #2 Ethibond interrupted and a running #1 Stratafix suture. The subcutaneous tissue was closed with 2-0 Vicryl and the skin with radha. Sterile dressings were applied. PLAN: Plan is for patient to go home today if she does well with therapy and is comfortable. She will go home on Percocet 5 mg 1 p.o. every 4 hours for pain, dispensed #24. She will take Keflex 500 mg every 6 hours x5 days and she will take aspirin 81 mg, which she is already on daily for DVT prophylaxis. We will see her back in 10 to 12 days for staple removal and she may take the dressing off and shower postop day 5. She is going to have outpatient therapy starting in 2 days.
== END 2024-03-18 14:14 | disposition home or self-care (01) ==
LOC: SDC 06:21 → MED SURG 11:38 → SDC 14:14
PROVIDERS: ATTEND Orthopaedic Surgery
DX: M17.12 Unilateral primary osteoarthritis, left knee (principal); M25.562 Pain in left knee; E11.9 Type 2 diabetes mellitus without complications
CPT/HCPCS: 27447; 73560; 76937; 82947; C1713; C1776; J0690; J2250; J2405; J2704; J2795; A9270-GY